=== PATIENT | female | born 1940 | race Caucasian/White ===

== ENCOUNTER 2017-07-17 09:03 | Inpatient (IN) | payer MEDICARE ==
[~2017-07-17 09:03] MED LIST: CEFAZOLIN 2 Gram 2 GM/50 ML BAG IVPB ONE; CELECOXIB 100 MG CAPSULE PO ONE; FAMOTIDINE 20MG TABLET PO ONE; MECLIZINE 25 MG TABLET PO ONE; METOCLOPRAMIDE 10 MG TABLET PO ONE; VANCOMYCIN HCL 1,000 MG in DEXTROSE 5 % IN WATER 250 ML IVPB ONE
[2017-07-17 12:05] LABS: ABO GROUP O; ANTIBODY SCREEN NEGATIVE (NEGATIVE); RH TYPE POSITIVE
[2017-07-17] MEDS ORDERED: 0.9 % SODIUM CHLORIDE 10 ML VIAL IVP ONE (13:02)
[2017-07-17] MEDS ORDERED: TRANEXAMIC ACID 1,000 MG/10 ML ML IV ONE ×2 (13:02→14:00)
[2017-07-17] MEDS ORDERED: ALPRAZOLAM 0.25 MG TABLET PO ONE (13:52)
[2017-07-17] MEDS ORDERED: *PACU ONLY* KETAMINE HCL 10 MG/ML (20ML) VIAL IV ONE (14:00)
[2017-07-17] MEDS ORDERED: SEVOFLURANE 250 ML INH ONE (14:00)
[2017-07-17] MEDS ORDERED: EPHEDRINE SULFATE 50 MG/ML ML IV ONE (14:00)
[2017-07-17] MEDS ORDERED: MORPHINE SULFATE 5 MG/ML PFS IVP ONE (14:00)
[2017-07-17] MEDS ORDERED: KETOROLAC 30 MG/ML VIAL IVP ONE (14:00)
[2017-07-17] MEDS ORDERED: BUPIVACAINE 0.5% W/EPI MPF 30 ML VIAL IVP ONE (14:00)
[2017-07-17] MEDS ORDERED: PROPOFOL 10 MG/ML VIAL IV ONE (14:00)
[2017-07-17 14:43] LABS: HEMATOCRIT 28.8 % (35.0-47.0); HEMOGLOBIN 9.1 gm/dl (11.6-16.0)
[2017-07-17] MEDS ORDERED: ZOLPIDEM TARTRATE 5 MG TABLET PO PRN (15:17)
[2017-07-17] MEDS ORDERED: ACETAMINOPHEN 325 MG TAB PO PRN (15:17)
[2017-07-17] MEDS ORDERED: HYDROCODONE/APAP 5/325MG TABLET PO PRN (15:17)
[2017-07-17] MEDS ORDERED: AL HYDROX/MAG HYDROX 30ML UD PO PRN (15:17)
[2017-07-17] MEDS ORDERED: NALOXONE 0.4 MG/1 ML VIAL IVP PRN (15:17)
[2017-07-17] MEDS ORDERED: ACETAMINOPHEN W/ CODEINE 300MG/60MG TABLET PO PRN ×2 (15:17)
[2017-07-17] MEDS ORDERED: HYDROMORPHONE HCL 2 MG/ML VIAL IM PRN (15:17)
[2017-07-17] MEDS ORDERED: HYDROCODONE/APAP 10/325 TABLET PO PRN (15:17)
[2017-07-17] MEDS ORDERED: ONDANSETRON HCL IV 4 MG/2 ML VIAL IVP PRN (15:17)
[2017-07-17] MEDS ORDERED: MAGNESIUM HYDROXIDE 30 ML UDC PO PRN (15:17)
[2017-07-17] MEDS ORDERED: KETOROLAC 30 MG/ML VIAL IVP PRN ×2 (15:17)
[2017-07-17] MEDS ORDERED: DIPHENHYDRAMINE HCL 25 MG CAPSULE PO PRN (15:17)
[2017-07-17] MEDS ORDERED: BISACODYL 10 MG SUPP RC PRN (15:17)
[2017-07-17] MEDS: HYDROCODONE/APAP 10/325 TABLET PO PRN (16:47)
[2017-07-17] MEDS ORDERED: 0.9 % SODIUM CHLORIDE 1000ML 1,000 ML IV ONE (20:19)
[2017-07-17 20:40] LABS: HEMATOCRIT 17.1 % (35.0-47.0); HEMOGLOBIN 5.1 gm/dl (11.6-16.0)
[2017-07-17] MEDS ORDERED: CEFAZOLIN 2 Gram 2 GM/50 ML BAG IVPB SCH (21:00)
[2017-07-17] MEDS: MORPHINE SULFATE 15 MG TABLET.ER PO SCH (21:02)
[2017-07-17 21:24] LABS: ABO GROUP O
[2017-07-17 21:25] LABS: ANTIBODY SCREEN NEGATIVE (NEGATIVE); IMMED. SPIN CROSSMATCH COMPATIBLE; RH TYPE POSITIVE
[2017-07-18] MEDS: MORPHINE SULFATE 15 MG TABLET.ER PO SCH ×6 (01:10→21:48)
[2017-07-18] MEDS ORDERED: PATIENT OWN MED: MC PRN (01:33)
[2017-07-18] MEDS: ALBUTEROL PUFF PRN ×4 (01:40→18:26)
[2017-07-18] MEDS: PROPRANOLOL HCL 10 MG TABLET PO SCH ×3 (01:56→21:00)
[2017-07-18] MEDS: POTASSIUM CHLORIDE/D5-0.9%NACL 20 MEQ/1,000 ML BAG IV SCH ×4 (02:16→12:35)
[2017-07-18] MEDS: CEFAZOLIN 2 Gram 2 GM/50 ML BAG IVPB SCH ×3 (02:17→19:06)
[2017-07-18] MEDS: DOCUSATE SODIUM 100 MG CAPSULE PO SCH ×3 (02:17→21:01)
[2017-07-18 07:23] LABS: HEMATOCRIT 28.5 % (35.0-47.0); HEMOGLOBIN 9.2 gm/dl (11.6-16.0)
[2017-07-18 07:35] LABS: BLOOD UREA NITROGEN 8 mg/dL (8-23); CREATININE 0.5 mg/dL (0.5-0.9); EST GLOMERULAR FILTRATION RATE > 60 mL/min; GLUCOSE,RANDOM 118 mg/dL (74-109)
[2017-07-18] MEDS: HYDROCODONE/APAP 10/325 TABLET PO PRN ×5 (08:18→20:57)
[2017-07-18] MEDS: ALBUTEROL HFA 8 GM INHALER INH SCH ×3 (08:30→17:21)
--- NOTE | 2017-07-18 10:52 | Rehab Evaluation ---
Patient Information - Patient Information Diagnosis: OA left hip Ordered Treatment: PT Evaluate and Treat Status: Initial Evaluation Surgery: Yes (FATIMAH left) Date of Surgery: 07/17/17 Past Medical/Surgical Hx: PAST MEDICAL/SURGICAL HISTORY Past Surgical History RTHA - face lift SCS non functioning c scope PMH - Respiratory Hx Asthma Yes Hx Chronic Obstructive Yes: uses albuterol inhaler 1-2 x's a day Pulmonary Disease (COPD) Hx Pneumonia Yes PMH - Cardiovascular Hx Cardiovascular Disorders Yes Hx Irregular Heartbeat Yes: has MVP. occassionally irreg Hx Heart Murmur Yes Hx Congenital Heart Disease Yes Hx of Mitral Valve Prolapse Yes: congenital Exercise Tolerance Poor Comment: in wheelchair PMH - Neuro Hx Neurological Disorders Yes Hx Headaches Yes: occass. Hx Weakness Yes: left leg Comment: tremors all of her life heredity PMH - GI Hx Gastrointestinal Disorders Yes Hx of Loss of Appetite Yes: related to meds. PMH - Hx Genitourinary Disorders No Hx Age of Menopause 41 PMH - Endocrine Hx Endocrine Disorders No PMH - Musculoskeletal Hx Musculoskeletal Disorders Yes Hx Arthritis Yes Hx Back Injury Yes: 20 yrs ago thrown off her horse Hx Osteoporosis Yes PMH - Psych Hx Psychiatric Problems Yes Hx Anxiety Yes PMH - Hematology/Oncology Hx Hematology/Oncology Yes Disorders Hx Blood Transfusion Reaction No Social History: Detail (Patient lives in single story house, has two steps into house with space in-between. No stairs in house. Has walk-in shower and seat, has elevated toilet and grab bars. Lives with spouse who will be able to help her at home. Will have home therapy to start.) Precautions: [place], Fall - Time With Patient Total Time Spent With Patient (Min): 30 Treatment Procedures: Detail (Patient seen in room, just got back into bed after using BSC. Had two units of blood overnight and still feels weak. Able to do hip exercises and reviewed precautions, supine to sit with CGA only, pivoted to edge of bed. Sit to stand easily with SBA, ambulated with FWW (not patient's own walker, will bring that this afternoon) with WBAT about 25 feet into fish then back to bed. Needed assist with IV only and CGA while up. Patient able to get back into bed without difficulty. Made sure call light, tray table close, had compressive stockings attached and working and cold pack at hip. Water available.) Subjective Information - Subjective Information Per Patient Objective Data - Pain Pain Present: Yes Pain Scale Used: Numeric (1 - 10) (3-4/10) - Mental Status Patient Orientation: Oriented x3 - Visual Perception Appears within normal limits for therapeutic activities - ROM Within normal limits (except hip is decreased slightly secondary to surgery.) - Strength/Tone Within normal limits (except left hip 3/5 yet.) - Coordination Appears within normal limits for therapeutic activities (except a little weak yet and balance a little off.) - Bed Mobility Needs Assist (Needed only slight assist with exercises and left LE.) - Transfers Needs Assist (only needs assist for safety standing.) - Balance Balance Sitting: Good Balance Standing: Good (Once upright standing good.) - Sensation Intact Therapy Assessment - Therapy Assessment Detail (Patient doing very well but had two units of blood overnight and very fatigued yet; has not been up much this am.) Patient Education - Patient Education Teaching Topic: Equipment Use, Exercise/Activity Response: Return Demonstration Teaching Method: Discussion, Demonstration Teaching Recipient: Patient Barriers To Learning: None Problem List - Problem List Physical Therapy Problem List: Detail (Patient fatigued yet from surgery and receiving blood. Mobility a little impaired and gait distance decreased yet, stairs not tested yet.) Goals - Goals Physical Therapy Goals: 1. Patient will be independent with all bed mobility. 2. Patient will be able to ambulate safely community distances for going home today or tomorrow. 3. Stairs will be assessed and patient will be safe with appropriate assistive device and assistance to get into/out of house. 4. Patient will be able to perform exercises safely. Prognosis - Prognosis Good (Patient should do well after gets some rest. Not sure if going home today or tomorrow.) Plan - Plan Physical Therapy Plan: Continue PT today (day after surgery) BID as needed to increase activity and check out gait and stairs. If stays overnight, will determine if patient needs more therapy so can go home safely.
[2017-07-18] MEDS: FERROUS SULFATE 325 MG TAB PO SCH (11:01)
[2017-07-18] MEDS: CALCIUM CARBONATE 500 MG TAB.CHEW PO SCH (11:02)
[2017-07-18] MEDS: RIVAROXABAN 10 MG TABLET PO SCH (11:03)
--- NOTE | 2017-07-18 14:07 | Rehab Evaluation ---
Patient Information - Patient Information Diagnosis: OA left hip Ordered Treatment: OT Evaluate and Treat Status: Initial Evaluation Surgery: Yes (FATIMAH left) Date of Surgery: 07/17/17 Past Medical/Surgical Hx: PAST MEDICAL/SURGICAL HISTORY Past Surgical History RTHA - face lift SCS non functioning c scope PMH - Respiratory Hx Asthma Yes Hx Chronic Obstructive Yes: uses albuterol inhaler 1-2 x's a day Pulmonary Disease (COPD) Hx Pneumonia Yes PMH - Cardiovascular Hx Cardiovascular Disorders Yes Hx Irregular Heartbeat Yes: has MVP. occassionally irreg Hx Heart Murmur Yes Hx Congenital Heart Disease Yes Hx of Mitral Valve Prolapse Yes: congenital Exercise Tolerance Poor Comment: in wheelchair PMH - Neuro Hx Neurological Disorders Yes Hx Headaches Yes: occass. Hx Weakness Yes: left leg Comment: tremors all of her life heredity PMH - GI Hx Gastrointestinal Disorders Yes Hx of Loss of Appetite Yes: related to meds. PMH - Hx Genitourinary Disorders No Hx Age of Menopause 41 PMH - Endocrine Hx Endocrine Disorders No PMH - Musculoskeletal Hx Musculoskeletal Disorders Yes Hx Arthritis Yes Hx Back Injury Yes: 20 yrs ago thrown off her horse Hx Osteoporosis Yes PMH - Psych Hx Psychiatric Problems Yes Hx Anxiety Yes PMH - Hematology/Oncology Hx Hematology/Oncology Yes Disorders Hx Blood Transfusion Reaction No Social History: Detail (Patient lives in single story house, has two steps into house with space in-between. No stairs in house. Has walk-in shower with hand held head, grab bars, and seat. Pt. has raised toilet seat. Lives with spouse who will be able to help her at home. Pt. states has [facility] set up for d/c. Pt. has a financial services auditor, sock aide, and long handled sponge from previous hip sx.) Precautions: [place], Fall (pt. is weak and shaky.), Other (LLE WBAT) - Time With Patient Total Time Spent With Patient (Min): 40 Objective Data - Pain Pain Present: Yes (Pt. stated medication was just despensed prior to session, and is in quite a bit of pain at the moment.) - Mental Status Patient Orientation: Oriented x3 - Visual Perception Appears within normal limits for therapeutic activities - ROM Within normal limits (BUE) - Strength/Tone Not within normal limits (BUE MMT shd flex 4-/5 flip., abd L 3+/5, R 4-/5, biceps and triceps 4/5. Pt. stated she feels weak d/t requiring 2 units of blood last night, and BUE were visibly shaking.) - Coordination Appears within normal limits for therapeutic activities - Bed Mobility Independent - Transfers Independent (SBA sit<>stand with educ. to apply hip precautions. Pt. demo accurately after educ. was provided.) - Balance Balance Sitting: Good Balance Standing: Fair - ADL's/IADL's Detail (Pt. toileted Ind. with SBA for t/f's and min VC to apply hip precautions. Hip precautions were reviewed, and Educ. was provided in applying hip precautions to examples of daily activities. Pt. returned demo. and voiced understanding. Educ. provided in use of financial services auditor with adaptive dressing techniques. Pt. dressed (don/doff elastic waist pants and shirt) using financial services auditor Ind. Reviewed other hip kit AE, but pt. stated she has them and remembers how to use from previous sx.) Therapy Assessment - Therapy Assessment Detail (Pt. demo. awareness of adaptive dressing techniques, use of AE, and application of hip precautions to ADL's. Pt. has a good environmental set-up at home, a positive support system, and will be available to assist if needed. In-pt. OT services not recommended at this time. Pt. demo. weak BUE ( especially shoulders), but was able to functionally use walker and push up on hands during t/f's. Pt. will most likely re-gain UE strength via daily activities upon return home when she feels better, but may benefit from an UE HEP.) Patient Education - Patient Education Teaching Topic: Equipment Use, Precautions (hip precautions) Response: Return Demonstration, Verbalize Understanding Teaching Method: Discussion, Demonstration Teaching Recipient: Patient Barriers To Learning: None Problem List - Problem List Physical Therapy Problem List: Detail (Patient fatigued yet from surgery and receiving blood. Mobility a little impaired and gait distance decreased yet, stairs not tested yet.) Goals - Goals Physical Therapy Goals: 1. Patient will be independent with all bed mobility. 2. Patient will be able to ambulate safely community distances for going home today or tomorrow. 3. Stairs will be assessed and patient will be safe with appropriate assistive device and assistance to get into/out of house. 4. Patient will be able to perform exercises safely. Prognosis - Prognosis Good Plan - Plan Physical Therapy Plan: Continue PT today (day after surgery) BID as needed to increase activity and check out gait and stairs. If stays overnight, will determine if patient needs more therapy so can go home safely. Occupational Therapy Plan: D/C from in-pt. OT services. Educ. was provided to call rehab dept. if Q's arise when she returns home.
--- NOTE | 2017-07-18 15:13 | Physical Therapy Tx Note ---
Physical Therapy Tx Note - Treatment Note Tolerated: Good (Patient still feeling a little weak and shaky. Willing to get up and walk though and doing better with getting out of bed but still needs slight assist with left LE. Patient also willing to try stairs now. Staying overnight again.) Total Time Spent With Patient: 30 Physical Therapy Tx Note: Detail (Patient seen in room and sitting up in bed, performed some of hip exercises before got out of bed: heel slides, quad, glut and ham sets, SLR, ankle pumps and hip abduction. Supine to sit independently then able to slide leg over to edge of bed without compromising hip precautions. Sit to stand independently then ambulated with FWW about 25 feet to stairs, able to ambulate down three steps with folded walker and rail with correct technique then pivot around and ambulate back up three steps with CGA, walker and rail. Ambulated to wheelchair then sat down to rest. [place] after that that she needed to get back to bed so walked to bed and patient into bed with very slight assist with left LE.) Physical Therapy Problem List: Detail (Patient fatigued yet from surgery and receiving blood. Mobility a little impaired and gait distance decreased yet, stairs not tested yet.) Physical Therapy Goals: 1. Patient will be independent with all bed mobility. 2. Patient will be able to ambulate safely community distances for going home today or tomorrow. 3. Stairs will be assessed and patient will be safe with appropriate assistive device and assistance to get into/out of house. 4. Patient will be able to perform exercises safely. Prognosis: Good (Patient doing very well and has met all goals for discontinuing PT. She is going home tomorrow am and is fine to be finished with PT.) Physical Therapy Plan: Continue PT today (day after surgery) BID as needed to increase activity and check out gait and stairs. If stays overnight, will determine if patient needs more therapy so can go home safely.
--- NOTE | 2017-07-18 19:47 | Discharge Summary ---
DATE OF ADMISSION: 07/17/2017 DATE OF DISCHARGE: 07/19/2017 DATE OF SURGERY: 07/17/2017 HISTORY: Shira is a delightful diminutive 76-year-old female who was admitted after a left total hip arthroplasty. At the time of surgery, she was extremely hyperemic with a very vascular capsule and she is also diminutive. Postoperatively, she did well except she was a little hypotensive. Her hemoglobin dropped to 5.4. We did transfuse her 2 units of blood and her hemoglobin and vitals has normalized at 9.1 Her hospital course was otherwise unremarkable. She had quite a bit of pain relief from the procedure. DISCHARGE INSTRUCTIONS: The plan is to discharge her to home in the care of her family and Home PT and Visiting Nurse has been arranged. She will be given [place] for pain and Xarelto for DVT prophylaxis for 30 days and then she will follow-up in my office in four weeks. The Visiting Nurse will remove her sutures in two weeks. FINAL DIAGNOSIS/PRIMARY DIAGNOSIS: END-STAGE ARTHROSIS OF THE LEFT HIP. SECONDARY DIAGNOSIS: OPERATIVE BLOOD LOSS ANEMIA. OPERATIONS AND PROCEDURES: HYBRID LEFT TOTAL HIP ARTHROPLASTY WITH CEMENTED STEM AND CEMENTLESS ACETABULAR COMPONENT. DISCHARGE CONDITION: GOOD. JOB NUMBER: [id number] MTDD
[2017-07-18] MEDS ORDERED: GABAPENTIN 300 MG CAPSULE PO SCH (22:00)
[2017-07-19] MEDS: HYDROCODONE/APAP 10/325 TABLET PO PRN ×2 (01:46→09:33)
[2017-07-19] MEDS: GABAPENTIN 100 MG CAPSULE PO SCH ×2 (05:58→09:34)
[2017-07-19] MEDS: MORPHINE SULFATE 15 MG TABLET.ER PO SCH (05:58)
--- NOTE | 2017-07-19 06:33 | Operative Note ---
DATE: 07/17/2017. PREOPERATIVE DIAGNOSIS: PROFOUND ENDSTAGE ARTHROSIS OF THE LEFT HIP. POSTOPERATIVE DIAGNOSIS: PROFOUND ENDSTAGE ARTHROSIS OF THE LEFT HIP. PROCEDURE: Hybrid left total hip arthroplasty using [place] [employer] Nephew components with a cementless size 52, no-hole reflection cup; a 32-mm diameter, 35-degree offset liner; a size cemented size 12 Gladbrook stem, standard offset, with a +4, 32 mm diameter head, cobalt chrome. STAFF SURGEON: Ted Harry M.D. ANESTHESIA: General. PREPARATION: ChloraPrep. INDIVIDUAL CONSIDERATIONS: None. PROCEDURE: The patient was taken to the operating room and placed supine on the operating table. She had successful induction of a general anesthetic. She was then placed on her side, left side up, and her left leg and hip were prepped and draped in the usual fashion. The patient had a direct posterior approach to the hip. Sharp dissection was carried down through the skin and subcutaneous tissue. Small veins were coagulated with a Bovie. This lady's skin and subcutaneous tissue was extremely hyperemic. Short external rotators were identified as was the piriformis fossa, and removed. This exposed the posterior capsule. A posterior capsulectomy was performed. This lady's posterior capsule and hip capsule were almost 1.0 cm thick and extremely hyperemic and vascular. The hip was dislocated posteriorly. The femoral head was basically crumbling and coming off in sheets. A femoral neck cut was made just above the lesser trochanter, maybe a fingerbreadth. A rim capsulectomy was performed. Ligamentum was also amputated with a Bovie. This actually bled until I was able to put it in the socket. Starting with a 45-mm reamer to medialize, I reamed the introitus which was a 51 for a size 52 cup. After thorough irrigation, I impacted a size 52, no-hole reflection cup in 20 degrees of forward flexion and 40 degrees of abduction using the extra-articular alignment guide and bony landmarks. There was solid cementless fixation. Luckily with the cup intact and the center cap screw, this gave hemostasis from the bleeding capsule and the bleeding bone which was, again, extremely hyperemic. At this point, the proximal femur was delivered into the wound. A box-cutting osteotome was used to remove proximal metaphyseal bone. Mid-stem reaming was done to a size 13. I barely started filling cortex to maybe 12. I started to broach the 13, but her bone just would not tolerate and hold a cementless fixation. If I went any higher, I was going to basically crack her femur. I therefore elected to cement. I went ahead and thoroughly irrigated this out and bristle brushed the canal. I then placed the cement restricter and packed it. I mixed the cement under vacuum. After calcar reaming with a 13 trial, I went ahead and cemented in a size 12 Gladbrook stem with excellent calcar contact and solid cemented fixation. Anteversion was dialed into about 30 degrees. After the cement had set, a +4 head gave absolute stability to where the hip would not dislocate, even with full flexion and rotation. Full anterior stability with full extension and and external rotation. After irrigation, hemostasis was finally obtained with a Bovie. The sciatic nerve was in full view and was found to be completely intact. The tensor gluteal fascia was closed with running #2 Quill. Ancef 1.0 gm was mixed with 30 mL of saline, and this was placed deep to the fascia. At this point, Leslye Morales entered the room, and she finished the closure of the subcutaneous layer with #0 Quill. The skin was closed with trini. The skin was infiltrated with 0.5% Marcaine with epinephrine, and a sterile, bulky compressive Aquacel type dressing was applied. The patient tolerated the procedure well. Needle and sponge counts were correct. Estimated blood loss was about 700 mL. We did check a hemoglobin during the surgery toward the end, and her hemoglobin was 9.1. We will check a hemoglobin in the morning. There were no complications. JOB NUMBER: [id number] cc: Marianne Daniel
[2017-07-19 06:57] LABS: HEMATOCRIT 27.5 % (35.0-47.0); HEMOGLOBIN 8.8 gm/dl (11.6-16.0)
[2017-07-19 07:10] LABS: BLOOD UREA NITROGEN 7 mg/dL (8-23); CREATININE 0.4 mg/dL (0.5-0.9); EST GLOMERULAR FILTRATION RATE > 60 mL/min; GLUCOSE,RANDOM 104 mg/dL (74-109)
[2017-07-19] MEDS: ALBUTEROL PUFF PRN (08:04)
[2017-07-19] MEDS: RIVAROXABAN 10 MG TABLET PO SCH (09:31)
[2017-07-19] MEDS: FERROUS SULFATE 325 MG TAB PO SCH (09:33)
[2017-07-19] MEDS: CALCIUM CARBONATE 500 MG TAB.CHEW PO SCH (09:33)
[2017-07-19] MEDS: PROPRANOLOL HCL 10 MG TABLET PO SCH (09:34)
[2017-07-19] MEDS: DOCUSATE SODIUM 100 MG CAPSULE PO SCH (09:34)
== END 2017-07-19 11:55 | disposition home or self-care (01) | DRG 470 ==
LOC: MEDSURG 10:37
PROVIDERS: ADMIT Orthopaedic Surgery; ATTEND Orthopaedic Surgery
PROC: 0SRB0J9 Replacement of Left Hip Joint with Synthetic Substitute, Cemented, Open Approach (ICD-10-PCS; principal; 2017-07-17 13:00)
DX: M16.12 Unilateral primary osteoarthritis, left hip (principal); R25.1 Tremor, unspecified; J44.9 Chronic obstructive pulmonary disease, unspecified; G89.29 Other chronic pain; G62.9 Polyneuropathy, unspecified
CPT/HCPCS: 80048; 85014; 85018; 86850; 86900; 86901; 93005; 93010; 94760; 97110; 97116; 97165; J1885; J3480; J7030; J7060